=== PATIENT | male | born 1975 | race Caucasian/White ===

== ENCOUNTER 2016-11-03 06:03 | Inpatient (IN) | payer MEDICAID ==
[~2016-11-03] VITALS: Ht 193 cm; Wt 109.4 kg
[2016-11-03 07:04] LABS: microscopic required? NO
[2016-11-03 07:10] LABS: urine erythrocyte NEGATIVE (NEGATIVE)
[2016-11-03 07:16] LABS: PLATELET COUNT 212 x10^3mcL (130-400); RED CELL DISTRIBUTION WIDTH 13.1 % (11.5-14.5)
[2016-11-03 07:18] LABS: CALCIUM 8.8 mg/dL (8.5-10.1); CARBON DIOXIDE 29.4 mmol/L (21-32); CHLORIDE SERUM 106 mmol/L (98-107); CREATININE SERUM 0.9 mg/dL (0.7-1.3); GFR1 > 60 mL/min; GLUCOSE SERUM 119 mg/dL (74-106); POTASSIUM SERUM 4.2 mmol/L (3.5-5.1); SODIUM SERUM 143 mmol/L (136-145)
[2016-11-03 07:22] LABS: ALBUMIN 4.2 g/dL (3.4-5.0); ALKALINE PHOSPHATASE 69 U/L (46-116); ALT/SGPT 30 U/L (16-63); AST/SGOT 20 U/L (15-37); BILIRUBIN TOTAL 0.41 mg/dL (0.20-1.00); TOTAL PROTEIN, SERUM 7.6 g/dL (6.4-8.2)
[2016-11-03 07:25] LABS: BASOPHIL % 0 % (0-2)
[2016-11-03 07:40] LABS: AMPHETAMINE QUAL UR NONE DETECTED (NEG <=1000)
[2016-11-03] MEDS ORDERED: MULTI-VITAMINS1 TAB PO (07:40)
[2016-11-03 08:42] LABS: MAGNESIUM 2.1 mg/dL (1.8-2.4); PHOSPHOROUS 2.9 mg/dL (2.5-4.9)
[2016-11-03 08:46] LABS: CHOLESTEROL/HDL RATIO 2.2
[2016-11-03 08:51] LABS: T3 TOTAL 1.4 ng/mL
[2016-11-03 08:52] LABS: T4(THYROXINE) 8.3 ug/dL (4.7-13.3)
[2016-11-03 10:00] VITALS: Ht 193 cm; Wt 109.4 kg
[2016-11-03 10:08] VITALS: BP 141/89
[2016-11-03 14:13] VITALS: BP 135/88
[2016-11-03 17:26] VITALS: BP 136/83
[2016-11-03 21:25] VITALS: BP 137/89
[2016-11-04 05:34] VITALS: BP 138/92
[2016-11-04 06:12] LABS: BASOPHIL % 0.2 % (0-2); PLATELET COUNT 208 x10^3mcL (130-400); RED CELL DISTRIBUTION WIDTH 13.4 % (11.5-14.5)
[2016-11-04 06:15] LABS: CALCIUM 8.7 mg/dL (8.5-10.1); CARBON DIOXIDE 26.7 mmol/L (21-32); CHLORIDE SERUM 107 mmol/L (98-107); CREATININE SERUM 0.8 mg/dL (0.7-1.3); GFR1 > 60 mL/min; GLUCOSE SERUM 100 mg/dL (74-106); POTASSIUM SERUM 4.6 mmol/L (3.5-5.1); SODIUM SERUM 142 mmol/L (136-145)
[2016-11-04 09:29] VITALS: BP 146/86
[2016-11-04 13:19] VITALS: BP 128/70
[2016-11-04] MEDS ORDERED: ECO81 PO (13:58)
[2016-11-04] MEDS ORDERED: ATORVASTATIN CA40 M1 PO (13:58)
[2016-11-04 14:03] VITALS: BP 128/70
== END 2016-11-04 15:07 | disposition home or self-care (01) | DRG 48 ==
LOC: ED 06:03 → DU 07:39
PROVIDERS: Emergency Medicine; ADMIT Family Medicine
DX: G90.9 Disorder of the autonomic nervous system, unspecified (principal); Z68.29 Body mass index [BMI] 29.0-29.9, adult; R73.03 Prediabetes
CPT/HCPCS: 82962; 83880; 84439; J1885; J7030; Q0092